=== PATIENT | male | born 1990 | race Hispanic/Latino ===

== ENCOUNTER 2020-05-13 12:20 | Emergency (ER) | payer OTHER ==
[~2020-05-13] VITALS: Ht 160 cm; Wt 81.6 kg
[2020-05-13 12:59] LABS: BASOPHILS % 0.3 % (0.0-1.0); EOSINOPHILS # (AUTO) 0.1 (0.0-0.4); EOSINOPHILS % 0.5 % (0.0-6.0); HEMATOCRIT 41.7 % (38.2-49.6); HEMOGLOBIN 14.2 g/dL (14.0-18.0); LYMPHOCYTES # (AUTO) 2.6 (1.0-3.2); LYMPHOCYTES % 20.1 % (18.0-39.1); MEAN CORPUSCULAR HGB CONC 34.1 g/dL (31-35); MEAN CORPUSCULAR VOLUME 85.3 fL (81-99); MONOCYTES # (AUTO) 0.7 (0.2-0.8); MONOCYTES % 5.2 % (4.4-11.3); NEUTROPHILS # (AUTO) 9.5 (2.1-6.9); NEUTROPHILS % 73.5 % (38.7-80.0); PLATELET COUNT 388 x10e3/uL (140-360); RED BLOOD COUNT 4.89 x10e6/uL (4.3-5.7); RED CELL DISTRIBUTION WIDTH 12.3 % (11.7-14.4)
[2020-05-13] MEDS ORDERED: ONDANSETRON HCL INJ 2MG/ML 2ML 2 MG/ML VIAL IV STA (13:01)
[2020-05-13] MEDS ORDERED: METRONIDAZOLE 500MG/NS 100ML 100 ML IV STA (13:01)
[2020-05-13] MEDS ORDERED: MORPHINE SULFATE INJ 4 MG/ML INJ 1ML IV PRN (13:15)
[2020-05-13 13:19] LABS: ALANINE AMINOTRANSFERASE 25 IU/L (0-55); ALBUMIN 3.8 g/dL (3.5-5.0); ALBUMIN/GLOBULIN RATIO 0.7 (0.8-2.0); ALKALINE PHOSPHATASE 86 IU/L (40-150); ANION GAP 12.8 mmol/L (8-16); BLOOD UREA NITROGEN 10 mg/dL (7-26); BUN/CREATININE RATIO 14 (6-25); CALCIUM 9.4 mg/dL (8.4-10.2); CARBON DIOXIDE 24 mmol/L (22-29); CHLORIDE 103 mmol/L (98-107); CREATININE, SERUM 0.71 mg/dL (0.72-1.25); EST GLOMERULAR FILTRATION RATE > 60 ML/MIN (60-); GLUCOSE 105 mg/dL (74-118); POTASSIUM 3.8 mmol/L (3.5-5.1); SODIUM 136 mmol/L (136-145)
[2020-05-13 15:23] VITALS: BP 117/57
== END 2020-05-13 17:00 | disposition other institution (70) ==
LOC: ER 13:01
DX: R10.11 Right upper quadrant pain (principal); K57.32 Diverticulitis of large intestine without perforation or abscess without bleeding; K76.0 Fatty (change of) liver, not elsewhere classified; Z20.822 Contact with and (suspected) exposure to COVID-19
CPT/HCPCS: 36415; 80053; 85025; 99284; J2270; J2405; U0002